=== PATIENT | male | born 1940 | race Caucasian/White ===

== ENCOUNTER → 2021-07-02 11:19 | Outpatient (CLI) | payer MEDICARE, OTHER, SELFPAY ==
--- NOTE | 2021-07-02 11:26 | DI.MRI.S_ITS ---
PROCEDURE: MR ANKLE LT WO CON INDICATIONS: l ankle pain greater than 6 weeks TECHNIQUE: Noncontrast sagittal T1 spin echo and T2 fast spin echo with fat saturation, axial proton density fast spin echo and T2 fast spin echo with fat saturation, coronal T1 spin echo and T2 fast spin echo with fat saturation through the ankle/hindfoot. COMPARISON: None. FINDINGS: Bones and joints: Bones: No marrow contusions or fractures. Scattered degenerative subchondral sclerosis and spurring. Coalitions: No hindfoot coalitions. Talar dome: No osteochondral injuries of the talar dome. Other: Tibiotalar joint effusion. Medial structures: Posterior tibialis: Intact although there is mild tenosynovitis. Flexor digitorum longus: Intact. Flexor hallucis longus: Intact. Posterior tibial neurovascular bundle: Normal. Deltoid ligament complex: Ill-defined amorphous signal changes involving the deep fibers of the deltoid ligament complex suggestive of sprain (probably chronic.) Spring ligament: Intact. Lateral structures: Anterior talofibular ligament: Mild thickening however low in signal intensity therefore suggests chronic low-grade sprain. Calcaneofibular ligament: Intact. Posterior talofibular ligament: Intact. Anterior tibiofibular ligament: Intact. Posterior tibiofibular ligament: Intact. Intermalleolar ligament: Intact. Tibiofibular syndesmosis: Normal. Peroneus longus: Intact. Peroneus brevis: Intact. Bony peroneal tubercle and retrotrochlear prominence: Normal. Sinus tarsi: Normal. Anterior structures: Tibialis anterior: Intact. Extensor hallucis longus: Intact. Extensor digitorum longus: Intact. Dorsal talonavicular ligament: Intact. Posterior and plantar structures: Achilles tendon: Intact. Plantar fascia: Intact. Muscles: No abductor digiti quinti muscle atrophy to suggest King neuropathy. IMPRESSION: Mild posterior tibialis tenosynovitis. 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 Tibiotalar joint effusion. Probably chronic sprain of the deep fibers of the deltoid ligament complex. Dictated by: Kd Holguin M.D. on 07/02/2021 at 14:08 Approved by: Kd Holguin M.D. on 07/02/2021 at 14:16
== END ==
PROVIDERS: PCP Family Medicine; Referring Provider Physician Assistant Medical; Visit Provider Physician Assistant Medical
DX: M25.572 Pain in left ankle and joints of left foot (principal); G89.29 Other chronic pain; S93.402A Sprain of unspecified ligament of left ankle, initial encounter; M25.472 Effusion, left ankle
CPT/HCPCS: 73721